=== PATIENT | male | born 1970 | race Caucasian/White ===

== ENCOUNTER → 2017-05-15 | Outpatient (CLI) | payer OTHER ==
--- NOTE | 2017-05-15 11:59 | XR ---
EXAMINATION TYPE: XR lumbosacral spine min 4V DATE OF EXAM: 05/15/2017 CLINICAL HISTORY: Low back pain with no fall or known injury TECHNIQUE: Frontal, lateral, and oblique images of the lumbar spine are obtained. COMPARISON: None FINDINGS: There are 5 lumbar type vertebral bodies identified. The lumbar spine shows satisfactory alignment without evidence of acute fracture or dislocation. Degenerative disc disease is seen at mul tiple levels within the lumbar spine demonstrated as endplate sclerosis and intervertebral disc space narrowing at L4-L5 and L5-S1. No pars interarticularis defects. There is at least mild left-sided ne ural foraminal narrowing at L4-5 and at least mild right-sided neural foraminal narrowing at L3-L4 an d L4-L5. Vertebral body heights and disk space heights are within normal limits. The overlying soft tissue appears unremarkable. IMPRESSION: 1. No acute fracture or dislocation is seen in the lumbar spine. 2. Mild multilevel degenerative disc disease.
== END | disposition home or self-care (01) ==
LOC: RADXRYALE 11:08
PROVIDERS: ATTEND Family Medicine
DX: M51.37 Other intervertebral disc degeneration, lumbosacral region (principal)
CPT/HCPCS: 72110

== ENCOUNTER → 2017-05-29 | Outpatient (CLI) | payer OTHER ==
--- NOTE | 2017-05-29 07:43 | MR ---
EXAMINATION TYPE: MR lumbar spine wo/w con DATE OF EXAM: 05/29/2017 COMPARISON: Radiograph 05/15/2017 HISTORY: 46-year-old male with low back pain and degenerative disc Technique: Multiplanar, multisequence images of the lumbar spine were obtained before and after admin istration of 10 mL intravenous Gadavist gadolinium contrast. FINDINGS: Vertebral body heights are preserved and maintained. Mild heterogeneity of marrow signal without suspicious. A couple fatty matrix hemangiomas are present such as within the L1 and L2 vertebral bodies. No suspicious bone marrow replacement. Conus medullaris is normal. There is a component of very mild congenital spinal canal narrowing of the mid lumbar spine with AP c anal dimension of 1.3 cm. Variable [id number] disc desiccation throughout with bulging discs. Mild disc interspace narrow ing at both L4-5 and L5-S1 with posterior annular fissure at L4-L5 Additional facet arthropathy in the lower lumbar spine and a dextroconvex curvature centered along th e upper lumbar spine. At T12-L1, no spinal canal or neuroforaminal stenosis. At L1-L2, there is a minimal left paracentral disc protrusion without canal or foraminal stenosis. At L2-L3, no significant canal or foraminal stenosis. At L3-L4, component of mild congenital spinal canal narrowing. There is additional facet degenerative change. Mild bulging disc. This causes minimal inferior neural foraminal narrowing on the right. No significant spinal canal stenosis. At L4-L5, there is diffuse disc bulge with a superimposed right paracentral and intraforaminal disc p rotrusion. A midline posterior annular fissure is present. Disc material likely contacts the traversi ng right L5 nerve root as well as the exiting right L4 nerve root with mild to moderate narrowing no significant spinal canal stenosis. At L5-S1, there is diffuse disc bulge with superimposed right intraforaminal disc protrusion and face t arthropathy. Disc material closely approaches and may contact the traversing right S1 nerve root. T here is also moderate right neuroforaminal with abutment of the exiting right L5 nerve root. No abnormal enhancement within the spinal canal. No prevertebral or paravertebral soft tissue body seen. IMPRESSION: 1. Moderate degenerative disc disease at L4-L5 and L5-S1 with desiccated, bulging, and narrowed disc. There is a posterior annular fissure at L4-L5. 2. Superimposed right paracentral and right intraforaminal disc protrusions at both levels may contac t there respective right-sided exiting L4 and L5 nerve roots and respective traversing L5 and S1 nerv e roots. There are moderate right-sided neuroforaminal stenoses here. 3. Facet arthropathy lower lumbar spine. 4. Correlate for a possible dextroconvex scoliosis centered near the thoracolumbar junction.
== END ==
LOC: RADMRIMAIN 06:06
PROVIDERS: ATTEND Family Medicine
DX: M48.06 Spinal stenosis, lumbar region (principal); M99.73 Connective tissue and disc stenosis of intervertebral foramina of lumbar region; M51.26 Other intervertebral disc displacement, lumbar region; M51.37 Other intervertebral disc degeneration, lumbosacral region; M46.86 Other specified inflammatory spondylopathies, lumbar region
CPT/HCPCS: 72158; A9581

== ENCOUNTER → 2020-08-29 | Outpatient (CLI) | payer BC ==
--- NOTE | 2020-08-29 14:22 | XR ---
Left knee HISTORY: Pain and swelling 3 views of the left knee There is soft tissue swelling present. No evident joint effusion. Minimal spurring present at the pat ellofemoral joint. Alignment, joint spaces, bone mineralization are maintained. IMPRESSION: Correlate for prepatellar bursitis. Mild osteoarthritic changes.
== END | disposition home or self-care (01) ==
LOC: RADXRYALE 10:26
PROVIDERS: ATTEND Physician Assistant Medical
DX: M17.12 Unilateral primary osteoarthritis, left knee (principal)

== ENCOUNTER → 2022-07-11 | Outpatient (CLI) | payer BC ==
--- NOTE | 2022-07-12 22:31 | XR ---
EXAMINATION TYPE: XR shoulder complete BILAT DATE OF EXAM: 07/11/2022 CLINICAL HISTORY: Bilateral pain TECHNIQUE: Three views of the bilateral shoulders are obtained. COMPARISON: None. FINDINGS: There is no acute fracture/dislocation evident in either shoulder. Symmetric moderate narr owing at the bilateral acromioclavicular joints. Distal acromion morphology appears unremarkable bila terally. Glenohumeral joints are preserved bilaterally . The visualized ribs are intact bilaterally. IMPRESSION: As above.
== END | disposition home or self-care (01) ==
LOC: RADXRYALE 16:44
PROVIDERS: ATTEND Family Medicine
DX: M25.511 Pain in right shoulder (principal); M25.512 Pain in left shoulder

== ENCOUNTER → 2023-04-07 | Outpatient (CLI) | payer BC ==
--- NOTE | 2023-04-08 07:57 | CT ---
EXAMINATION TYPE: CT angio head DATE OF EXAM: 04/07/2023 COMPARISON: None HISTORY: HX OF BRAIN ANEURYSM AND COIL CT DLP: 1308.4 mGycm CONTRAST: CTA sycuan of [place] with 3-D reconstruction is performed and without and with IV Contrast, patient i njected with 100 mL of Isovue 370. Contrast CTA of the sycuan of [place] was performed 3-D reconstruction imaging obtained at a separate workstation. There is extensive streak artifact noted at the level of the tip of the basilar artery from prior aneurysm coiling. This does significantly limit evaluation. Vertebrobasilar system as well as intracranial portions of the internal carotid arteries and their major tributaries are patent. I do not see evidence for sizable aneurysm or vascular malformation. Please note MRI provides greater sensitivity and specificity. Visualized brain appears grossly unremarkable. IMPRESSION: Significantly Limited study given extensive streak artifact. The visualized vessels appear to be wing nt and free of sizable aneurysm.
== END | disposition home or self-care (01) ==
LOC: RADCTMAIN 14:23
PROVIDERS: ATTEND Family Medicine
DX: I72.8 Aneurysm of other specified arteries (principal); Z86.79 Personal history of other diseases of the circulatory system
CPT/HCPCS: 70496; Q9967

== ENCOUNTER → 2024-08-29 | Outpatient (CLI) | payer BC ==
--- NOTE | 2024-08-29 10:40 | US ---
EXAMINATION TYPE: US arterial UE single level DATE OF EXAM: 08/29/2024 9:59 AM CLINICAL INDICATION: Male, 53 years old with history of G56.00 CARPAL TUNNEL,M13.0 POLYARTHRITIS,I73. 9; Pain in both hands x several years. TECHNIQUE: Systolic pressures were taken of the upper extremity arteries with wrist brachial indices calculated. History of: *Patient states he has white coat syndrome Smoker: Previous Hypertension: Yes Diabetic: No Hyperlipidemia: ?unknown per pt TIA/CVA: No Previous Vascular Surgery: No [place]: No Vascular Ulcers: No Claudication: No Gangrene: No FINDINGS: Monophasic waveforms bilaterally with noncompressible vessels. Wrist Brachial Indices: Right: CNO Left: CNO IMPRESSION: 1. Essentially nondiagnostic exam due to noncompressibility. 2. Monophasic waveforms bilaterally. [facility], , 08/29/2024 10:38 AM
--- NOTE | 2024-08-29 10:41 | US ---
EXAMINATION TYPE: US arterial LE single level DATE OF EXAM: 08/29/2024 9:59 AM COMPARISONS: None. CLINICAL INDICATION: Male, 53 years old with history of G56.00,M13.0,I73.9; Pain in feet x a couple y ears TECHNIQUE: Systolic pressures were taken of the upper and lower extremity arteries with ankle-brachia l indices and toe brachial indices calculated bilaterally. History of: Pt has white coat syndrome Smoker: Previous Hypertension: Yes Diabetic: No Hyperlipidemia: ?Unknown per pt TIA/CVA: No Previous Vascular Surgery: No [place]: No Vascular Ulcers: No Claudication: No per pt Gangrene: No FINDINGS: Doppler Waveforms: Right: Biphasic Left: Biphasic Brachial Artery systolic pressure: Right: CNO Left: CNO Posterior Tibial artery systolic pressure: Right: CNO Left: CNO Dorsalis Pedis artery systolic pressure: Right: CNO Left: CNO Toe artery systolic pressure: Right: 212 Left: CNO Ankle-Brachial Indices: Right: CNO Left: CNO (Vessel hardening > 1.4; Normal 0.9 - 1.4, Moderate 0.7 - 0.9, Severe 0.5-0.7) Toe Brachial Indices: Not performed IMPRESSION: Essentially nondiagnostic exam due to noncompressible vessels. [facility], , 08/29/2024 10:39 AM
== END | disposition home or self-care (01) ==
LOC: RADUSWWP 09:23
PROVIDERS: ATTEND Family Medicine
DX: G56.00 Carpal tunnel syndrome, unspecified upper limb (principal); M13.0 Polyarthritis, unspecified; I10 Essential (primary) hypertension; I70.203 Unspecified atherosclerosis of native arteries of extremities, bilateral legs; Z87.891 Personal history of nicotine dependence
CPT/HCPCS: 93922

== ENCOUNTER 2024-12-20 13:20 | Observation (INO) | payer BC ==
[2024-12-20] MEDS: SODIUM CHLORIDE 0.9% 1,000 ML IV ONE (13:48)
--- NOTE | 2024-12-20 14:07 | ED ---
General Adult HPI <Luis Eduardo Muñiz - Last Filed: 12/20/24 19:26> - General Source: patient, RN notes reviewed, old records reviewed Mode of arrival: ambulatory Limitations: no limitations <Car Justice - Last Filed: 12/22/24 21:51> - General Chief complaint: Recheck/Abnormal Lab/Rx Stated complaint: irreg bp Time Seen by Provider: 12/20/24 13:30 - History of Present Illness Initial comments: 54-year-old male history of hypertension presenting with elevated blood pressure. Patient was seen today with plans for carpal tunnel surgery and was noted to have a significantly elevated blood pressure. Over 200 systolic. Patient was asymptomatic and admits that he has whitecoat syndrome and does not like a hospital setting. He had contacted his primary care provider who instructed him to rest and recheck the blood pressure if it remained over 200 he should come to the emergency department. His blood pressure did remain high. He remained completely asymptomatic otherwise. No headache. No chest pain. No abdominal pain. No focal numbness or weakness. (Car Justice) - Related Data Home Medications Medication Instructions Recorded Confirmed Chlorthalidone [Hygroton] 25 mg PO HS 12/20/24 12/20/24 HYDROcodone/APAP 10-325MG [[place] 1 tab PO TID 12/20/24 12/20/24 10-325] Lansoprazole [Prevacid] 30 mg PO DAILY 12/20/24 12/20/24 Rosuvastatin [Crestor] 20 mg PO DAILY 12/20/24 12/20/24 allopurinoL [Zyloprim] 300 mg PO DAILY 12/20/24 12/20/24 lisinopriL 40 mg PO DAILY 12/20/24 12/20/24 tiZANidine [Zanaflex] 4 mg PO TID 12/20/24 12/20/24 Previous Rx's Medication Instructions Recorded Metoprolol Tartrate [Lopressor] 100 mg PO TID 30 Days #90 tab 12/21/24 amLODIPine [Norvasc] 5 mg PO DAILY 30 Days #30 tab 12/21/24 Allergies Allergy/AdvReac Type Severity Reaction Status Date / Time No Known Allergies Allergy Verified 12/20/24 14:59 Review of Systems ROS Other: All systems not noted in ROS Statement are negative. <Luis Eduardo Muñiz - Last Filed: 12/20/24 19:26> ROS Other: All systems not noted in ROS Statement are negative. <Car Justice - Last Filed: 12/22/24 21:51> ROS Statement: Those systems with pertinent positive or pertinent negative responses have been documented in the HPI. Past Medical History Past Medical History: Hypertension Additional Past Medical History / Comment(s): aneurysm History of Any Multi-Drug Resistant Organisms: None Reported Past Surgical History: Back Surgery Past Psychological History: No Psychological Hx Reported Smoking Status: Former smoker Past Alcohol Use History: Occasional Past Drug Use History: None Reported <Car Justice - Last Filed: 12/22/24 21:51> General Exam Limitations: no limitations General appearance: alert, in no apparent distress Head exam: Present: atraumatic, normocephalic Eye exam: Present: normal appearance, PERRL ENT exam: Present: normal exam Neck exam: Present: normal inspection. Absent: tenderness, meningismus Respiratory exam: Present: normal lung sounds bilaterally. Absent: respiratory distress, wheezes Cardiovascular Exam: Present: regular rate, normal rhythm GI/Abdominal exam: Present: soft. Absent: distended, tenderness Extremities exam: Present: normal inspection, normal capillary refill Neurological exam: Present: alert, oriented X3, CN II-XII intact. Absent: motor sensory deficit Psychiatric exam: Present: normal affect, normal mood <Car Justice - Last Filed: 12/22/24 21:51> Course Vital Signs 12/20/24 12/20/24 12/20/24 13:22 14:30 15:05 Temperature 97.8 F Pulse Rate 88 72 84 Respiratory 20 18 18 Rate Blood Pressure 254/138 173/115 200/119 O2 Sat by Pulse 97 95 97 Oximetry 12/20/24 12/20/24 12/20/24 15:30 16:17 16:47 Temperature Pulse Rate 80 98 100 Respiratory 18 18 18 Rate Blood Pressure 200/126 178/102 186/111 O2 Sat by Pulse 98 97 95 Oximetry 12/20/24 12/20/24 12/20/24 17:37 18:00 19:42 Temperature Pulse Rate 109 H 114 H Respiratory 18 Rate Blood Pressure 195/111 173/112 195/140 O2 Sat by Pulse 97 Oximetry 12/20/24 12/20/24 12/20/24 20:14 20:37 23:33 Temperature 98.4 F 98.4 F Pulse Rate 133 H 117 H 101 H Respiratory 20 20 18 Rate Blood Pressure 164/99 149/81 123/74 O2 Sat by Pulse 98 98 98 Oximetry Medical Decision Making - Lab Data Result diagrams: 12/20/24 14:00 12/20/24 14:00 <Luis Eduardo Muñiz - Last Filed: 12/20/24 19:26> - Lab Data Result diagrams: 12/21/24 08:50 12/21/24 08:50 <Car Justice - Last Filed: 12/22/24 21:51> - Medical Decision Making Despite several attempts at reducing blood pressure with multiple medications kolton kenny remains hypertensive. Patient will be admitted. Admission orders written. Patient and family updated. Case was discussed with practitioner Tj who will admit covering for Dr. Aditi hartman. (Luis Eduardo Muñiz) Was pt. sent in by a medical professional or institution (, PA, TITLE SEARCHER, urgent care, hospital, or shelter...) When possible be specific @ -No Did you speak to anyone other than the patient for history (EMS, parent, family, police, friend...)? What history was obtained from this source @ -No Did you review nursing and triage notes (agree or disagree)? Why? @ -I reviewed and agree with nursing and triage notes Were old charts reviewed (outside hosp., previous admission, EMS record, old EKG, old radiological studies, urgent care reports/EKG's, shelter records)? Report findings @ -No old charts were reviewed Differential Diagnosis hypertension, asymptomatic, hypertensive urgency, hypertensive emergency. EKG interpreted by me (3pts min.). @Sinus rhythm rate of 78, VT interval 175, QRS duration 89, QTc [address] segment elevation. X-rays interpreted by me (1pt min.). @ -None done CT interpreted by me (1pt min.). @ -None done U/S interpreted by me (1pt. min.). @ -None done What testing was considered but not performed or refused? (CT, X-rays, U/S, labs)? Why? @ -None What meds were considered but not given or refused? Why? @ -None Did you discuss the management of the patient with other professionals (professionals i.e. , PA, TITLE SEARCHER, lab, RT, psych nurse, nursing home social worker, broadcast operations manager, teacher, aoc director combat operations officer, supervisor case loading)? Give summary @ -No Was smoking cessation discussed for >3mins.? @ -No Was critical care preformed (if so, how long)? @ -No Were there social determinants of health that impacted care today? How? (Homelessness, low income, unemployed, alcoholism, drug addiction, transportation, low edu. Level, literacy, decrease access to med. care, snf, rehab)? @ -No Was there de-escalation of care discussed even if they declined (Discuss DNR or withdrawal of care, Hospice)? DNR status @ -No What co-morbidities impacted this encounter? (DM, HTN, Smoking, COPD, CAD, Cancer, CVA, ARF, Chemo, Hep., AIDS, mental health diagnosis, sleep apnea, morbid obesity)? @ -History of hypertension Was patient admitted / discharged? Hospital course, mention meds given and route, prescriptions, significant lab abnormalities, going to OR and other pertinent info. @ -[54-year-old male with history of hypertension, presenting with elevated blood pressure likely secondary to whitecoat syndrome. Patient completely asymptomatic. EKG is sinus. He has no chest pain no abdominal pain no headache. No focal numbness or weakness. Laboratory testing is unremarkable. Given IV fluids and hydralazine in the emergency department with significant improvement in blood pressure. Patient care signed out at shift change awaiting reduction in blood pressure. Undiagnosed new problem with uncertain prognosis? @ -No Drug Therapy requiring intensive monitoring for toxicity (Heparin, Nitro, Insulin, Cardizem)? @ -No Were any procedures done? @ -No Diagnosis/symptom? @Uncontrolled hypertension Acute, or Chronic, or Acute on Chronic? @Acute on chronic Uncomplicated (without systemic symptoms) or Complicated (systemic symptoms)? @ -Default Side effects of treatment? @ -No Exacerbation, Progression, or Severe Exacerbation? @ -No Poses a threat to life or bodily function? How? (Chest pain, [place], [place], pneumonia, PE, COPD, DKA, ARF, appy, cholecystitis, CVA, Diverticulitis, Homicidal, Suicidal, threat to staff... and all critical care pts) @ -Low risk at this time (Car Justice) - Lab Data Lab Results 12/20/24 12/20/24 12/20/24 Range/Units 14:00 14:00 14:00 WBC 8.9 (3.8-10.6) k/uL RBC 6.09 H (4.30-5.90) m/uL Hgb 18.0 H (13.0-17.5) gm/dL Hct 52.8 (39.0-53.0) % MCV 86.6 (80.0-100.0) fL MCH 29.6 (25.0-35.0) pg MCHC 34.1 (31.0-37.0) g/dL RDW 13.2 (11.5-15.5) % Plt Count 214 (150-450) k/uL MPV 7.1 Neutrophils % 68 % Lymphocytes % 22 % Monocytes % 6 % Eosinophils % 1 % Basophils % 1 % Neutrophils # 6.0 (1.3-7.7) k/uL Lymphocytes # 2.0 (1.0-4.8) k/uL Monocytes # 0.5 (0-1.0) k/uL Eosinophils # 0.1 (0-0.7) k/uL Basophils # 0.1 (0-0.2) k/uL Sodium 136 L (137-145) mmol/L Potassium 4.0 (3.5-5.1) mmol/L Chloride 97 L (98-107) mmol/L Carbon Dioxide 24 (22-30) mmol/L Anion Gap 15 mmol/L BUN 19 (9-20) mg/dL Creatinine 0.83 (0.66-1.25) mg/dL Est GFR (CKD-EPI)AfAm >90 (>60 ml/min/1.73 sqM) Est GFR (CKD-EPI)NonAf >90 (>60 ml/min/1.73 sqM) Glucose 91 (74-99) mg/dL Calcium 10.5 H (8.4-10.2) mg/dL Total Bilirubin 1.1 (0.2-1.3) mg/dL AST 61 H (17-59) U/L ALT 85 H (4-49) U/L Alkaline Phosphatase 99 (38-126) U/L Troponin I 0.012 (0.000-0.034) ng/mL Total Protein 8.2 (6.3-8.2) g/dL Albumin 5.0 (3.5-5.0) g/dL Disposition Is patient prescribed a controlled substance at d/c from ED?: No <Luis Eduardo Muñiz - Last Filed: 12/20/24 19:26> Is patient prescribed a controlled substance at d/c from ED?: No Time of Disposition: 15:10 <Car Justice - Last Filed: 12/22/24 21:51> Clinical Impression: Hypertension Disposition: ADMITTED IP TO THIS HOSP Condition: Stable
[2024-12-20 14:13] LABS: Basophils # (A) 0.1 k/uL (0-0.2); Basophils % (A) 1 %; Eosinophils # (A) 0.1 k/uL (0-0.7); Eosinophils % (A) 1 %; HCT 52.8 % (39.0-53.0); Lymphocytes % (A) 22 %; MCH 29.6 pg (25.0-35.0); MCHC 34.1 g/dL (31.0-37.0); MCV 86.6 fL (80.0-100.0); Mean Platelet Volume 7.1; Monocytes # (A) 0.5 k/uL (0-1.0); Monocytes % (A) 6 %; Neutrophils % (A) 68 %; Platelet Count 214 k/uL (150-450); RBC 6.09 m/uL (4.30-5.90); RDW 13.2 % (11.5-15.5); WBC 8.9 k/uL (3.8-10.6)
[2024-12-20 14:30] LABS: ALT 85 U/L (4-49); AST 61 U/L (17-59); African American GFR (CKD) >90 (>60 ml/min/1.73 sqM); Alkaline Phosphatase 99 U/L (38-126); Anion Gap 15 mmol/L; Blood Urea Nitrogen 19 mg/dL (9-20); Calcium 10.5 mg/dL (8.4-10.2); Carbon Dioxide 24 mmol/L (22-30); Chloride 97 mmol/L (98-107); Glucose 91 mg/dL (74-99); Non-African American GFR(CKD) >90 (>60 ml/min/1.73 sqM); Sodium 136 mmol/L (137-145); Total Bilirubin 1.1 mg/dL (0.2-1.3); Total Protein 8.2 g/dL (6.3-8.2)
[2024-12-20] MEDS: hydrALAZINE HCL 20 MG/ML 1 ML VIAL IVP STA ×2 (14:47→15:35)
[2024-12-20] MEDS: ENALAPRILAT 1.25 MG/ML 1 ML VIAL IVP STA ×2 (17:02→19:30)
[2024-12-20] MEDS ORDERED: NALOXONE 0.4 MG/ML 1 ML VIAL IV PRN (19:27)
[2024-12-20] MEDS: hydrALAZINE HCL 20 MG/ML 1 ML VIAL IVP PRN (19:38)
[2024-12-20] MEDS: HYDROmorphone 1 MG/ML 1 ML SYRINGE IVP PRN (20:19)
[2024-12-20] MEDS ORDERED: NON FORMULARY DRUG (Metoprolol Tartrate [Lopressor] 100 MG Tablet) PO SCH (21:00)
[2024-12-20] MEDS: HYDROcodone/APAP 10-325MG 1 EACH TAB PO SCH (21:32)
[2024-12-20] MEDS: METOPROLOL TARTRATE 50 MG TAB PO SCH (21:32)
[2024-12-20] MEDS: tiZANidine 4 MG TAB PO SCH (21:32)
[2024-12-20] MEDS ORDERED: cloNIDine HCL 0.1 MG TAB PO PRN (22:41)
[2024-12-20] MEDS: CHLORTHALIDONE 25 MG TAB PO SCH (22:46)
[2024-12-20] MEDS: cloNIDine HCL 0.2 MG TAB PO STA (22:49)
--- NOTE | 2024-12-20 23:18 | P.HPIM ---
History of Present Illness H&P Date: 12/20/24 Chief Complaint: htn urgency Patient is a 54-year-old male with hypertension presenting with elevated blood pressure. [facility] and was noted to have elevated blood pressure over 200 systolic. Patient was negative syntactic. He felt that he has had whitecoat syndrome due to him being in a hospital setting. He shortly went home and called his PCP. PCP told him to recheck blood pressure at home and it was still in the 200s systolic. He was instructed to go to the emergency department. During interview patient remains him symptomatic. However he did note that after he received his blood pressure medications in the ED, he noted some chest pain. He describes it as a pain that radiates to his left arm. EKG and troponins were ordered and have been unremarkable so far. Denies any nausea, vomiting, diaphoresis, or shortness of breath. Denies any headache, abdominal pain, numbness or tingling. EKG independently interpreted displays sinus rhythm, vent rate 78 bpm, QTc 404 ms T 97.8 F, [place] 88, RR 20, BP 254/138, O2 sat 97% on room air Review of systems: Pertinent positives and negatives as discussed in HPI, a complete review of systems was performed and all other systems are negative. Physical examination: Vital signs reviewed General: non toxic, no distress, appears at stated age, normal weight Derm: no unusual rashes/lesions, warm Head: atraumatic, normocephalic, symmetric Eyes: anicteric sclera, pupils equal round reactive to light ENT: Nose and ears atraumatic Mouth: no lip lesion, mucus membranes moist Cardiovascular: S1S2 reg, no murmur, no edema Lungs: CTA bilateral, no rhonchi, no rales, no accessory muscle use Abdominal: soft, non-tender to palpation, no guarding Ext: muscle strength 5 out of 5 in all 4 extremities grossly, no gross muscle atrophy Neuro: CN II-XI grossly intact, no gross focal neuro deficits Psych: Alert, oriented to person, place, and time Assessment/Plan: Patient is a 54-year-old male with hypertension presenting with elevated blood pressure. ED documentation reviewed.Discussed with the patient. The patient is admitted with an anticipated less than 2 midnight stay for evaluation of hypertensive urgency. #. Hypertensive urgency EKG independently interpreted displays sinus rhythm, vent rate 78 bpm, QTc 404 ms S/p 20 mg hydralazine IVP and Vasotec 2.50 mg of IVP Clonidine 0.1 mg prn for BP > 180/120 - can take hourly for up to 0.7 mg a day Continue with home antihypertensives tomorrow: Chlorthalidone 25 mg PO at bedtime, lisinopril 40 mg PO daily, Lopressor 100 mg PO twice daily Troponin < 0.012 x 2, continue trending TSH ordered #. Erythrocytosis Hgb 18.0 Likely in setting of dehydration Follow-up CBC #. Transaminitis Patient asymptomatic monitor CMP #. Hyperlipidemia Rosuvastatin 20 mg p.o. daily #. Chronic back pain Zanaflex 4 mg PO TID [place] 10 PO TID DVT prophylaxis: Lovenox 40 SQ daily CODE STATUS: Full code Anticipated discharge place: Pending clinical course Tiffany Lee MD PGY-1 IM Dictation was produced using [employer] dictation software. please excuse any grammatical, word or spelling errors. I have seen and evaluated the patient today. I Discussed the case with the resident and agree with the resident's findings I edited the assessment and plan as necessary as documented in the resident's note. Past Medical History Past Medical History: Hypertension Additional Past Medical History / Comment(s): aneurysm History of Any Multi-Drug Resistant Organisms: None Reported Past Surgical History: Back Surgery Past Psychological History: No Psychological Hx Reported Smoking Status: Former smoker Past Alcohol Use History: Occasional Past Drug Use History: None Reported Medications and Allergies Home Medications Medication Instructions Recorded Confirmed Type Chlorthalidone [Hygroton] 25 mg PO HS 12/20/24 12/20/24 History HYDROcodone/APAP 10-325MG [[place] 1 tab PO TID 12/20/24 12/20/24 History 10-325] Lansoprazole [Prevacid] 30 mg PO DAILY 12/20/24 12/20/24 History Rosuvastatin [Crestor] 20 mg PO DAILY 12/20/24 12/20/24 History allopurinoL [Zyloprim] 300 mg PO DAILY 12/20/24 12/20/24 History lisinopriL 40 mg PO DAILY 12/20/24 12/20/24 History tiZANidine [Zanaflex] 4 mg PO TID 12/20/24 12/20/24 History Metoprolol Tartrate [Lopressor] 100 mg PO TID 30 Days #90 tab 12/21/24 Rx amLODIPine [Norvasc] 5 mg PO DAILY 30 Days #30 tab 12/21/24 Rx Allergies Allergy/AdvReac Type Severity Reaction Status Date / Time No Known Allergies Allergy Verified 12/20/24 14:59 Physical Exam Vitals: Vital Signs Temp Pulse Resp BP Pulse Ox 12/20/24 20:37 117 H 20 149/81 98 12/20/24 20:14 98.4 F 133 H 20 164/99 98 12/20/24 19:42 114 H 195/140 12/20/24 18:00 109 H 18 173/112 97 12/20/24 17:37 195/111 12/20/24 16:47 100 18 186/111 95 12/20/24 16:17 98 18 178/102 97 12/20/24 15:30 80 18 200/126 98 12/20/24 15:05 84 18 200/119 97 12/20/24 14:30 72 18 173/115 95 12/20/24 13:22 97.8 F 88 20 254/138 97 Intake and Output 12/20/24 12/20/24 12/20/24 06:59 14:59 22:59 Other: Weight 92.986 kg Results CBC & Chem 7: 12/21/24 08:50 12/21/24 08:50 Labs: Abnormal Lab Results - Last 24 Hours (Table) 12/20/24 12/20/24 Range/Units 14:00 14:00 RBC 6.09 H (4.30-5.90) m/uL Hgb 18.0 H (13.0-17.5) gm/dL Sodium 136 L (137-145) mmol/L Chloride 97 L (98-107) mmol/L Calcium 10.5 H (8.4-10.2) mg/dL AST 61 H (17-59) U/L ALT 85 H (4-49) U/L
[2024-12-21] MEDS: PANTOPRAZOLE 40 MG TABLET PO STA (00:52)
[2024-12-21 07:55] VITALS: RESP 17
[2024-12-21] MEDS: ENOXAPARIN 40 MG/0.4 ML SYRINGE SQ SCH (08:08)
[2024-12-21] MEDS: lisinopriL 20 MG TAB PO SCH (08:08)
[2024-12-21] MEDS: ATORVASTATIN 40 MG TAB PO SCH (08:08)
[2024-12-21] MEDS: PANTOPRAZOLE 40 MG TABLET PO SCH (08:10)
[2024-12-21] MEDS: LORazepam 1 MG TAB PO STA (08:53)
[2024-12-21] MEDS: amLODIPine 5 MG TAB PO SCH (08:53)
[2024-12-21 09:20] LABS: Basophils % (A) 0 %; Eosinophils % (A) 1 %; HCT 51.7 % (39.0-53.0); HGB 17.2 gm/dL (13.0-17.5); Lymphocytes # (A) 1.1 k/uL (1.0-4.8); Lymphocytes % (A) 12 %; MCH 29.1 pg (25.0-35.0); MCHC 33.2 g/dL (31.0-37.0); MCV 87.6 fL (80.0-100.0); Mean Platelet Volume 7.1; Monocytes # (A) 0.6 k/uL (0-1.0); Monocytes % (A) 6 %; Neutrophils # (A) 7.5 k/uL (1.3-7.7); Neutrophils % (A) 79 %; Platelet Count 249 k/uL (150-450); RDW 13.4 % (11.5-15.5); WBC 9.4 k/uL (3.8-10.6)
[2024-12-21 09:27] LABS: ALT 55 U/L (4-49); AST 33 U/L (17-59); African American GFR (CKD) 85 (>60 ml/min/1.73 sqM); Albumin 4.6 g/dL (3.5-5.0); Alkaline Phosphatase 90 U/L (38-126); Anion Gap 13 mmol/L; Blood Urea Nitrogen 20 mg/dL (9-20); Calcium 10.4 mg/dL (8.4-10.2); Carbon Dioxide 23 mmol/L (22-30); Chloride 98 mmol/L (98-107); Glucose 134 mg/dL (74-99); Magnesium 1.9 mg/dL (1.6-2.3); Non-African American GFR(CKD) 74 (>60 ml/min/1.73 sqM); Potassium 3.9 mmol/L (3.5-5.1); Sodium 134 mmol/L (137-145); Total Bilirubin 1.3 mg/dL (0.2-1.3); Total Protein 7.4 g/dL (6.3-8.2)
[2024-12-21] MEDS: allopurinoL 300 MG TAB PO SCH (10:16)
[2024-12-21] MEDS ORDERED: MORPHINE SULFATE 4 MG/ML SYRINGE IV PRN (10:40)
[2024-12-21 15:48] VITALS: BP 160/95; PULSE 90; TEMP 98.7
--- NOTE | 2024-12-21 16:19 | P.DS ---
Providers Date of admission: 12/20/24 19:27 Expected date of discharge: 12/21/24 Attending physician: Malcom Grady Primary care physician: Reji Mendoza [facility] Course: Discharge Diagnosis: Hypertensive urgency. Patient asymptomatic however does have history of reported brain aneurysm. Patient declined undergoing CT scan stating he does not have a headache or any complaints at this time and was recently seen and underwent scan by his neurologist a few months ago. Patient's home medication regimen of metoprolol was increased to 100 mg 3 times daily (previously taking twice daily) and he was started on amlodipine 5 mg daily in addition to his current blood pressure medication with chlorthalidone 25 mg nightly and lisinopril 40 mg daily. Blood pressures have improved at 158/91, 160/95, and patient remains asymptomatic denying any complaints. Patient reports his only issue is feeling anxious about being in the hospital and does not want to be here. Patient is medically optimized for discharge at this time and strongly encouraged to monitor his blood pressures closely at home a minimum of twice daily at home and document these results and a daily log to bring with him to his follow-up appointment with PCP. 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 Patient to follow-up with his neurologist for long-term monitoring/management. Patient states he was diagnosed over 20 years ago and was told by his neurologist everything is stable and he denies any complaints including headache. Hyperlipidemia. Continue daily medication regimen with rosuvastatin 20 mg nightly. Chronic lower back pain. Patient to continue home medication regimen with Zanaflex 4 mg 3 times daily and [place] 10/325 mg 3 times daily. Hospital Course: Patient is a pleasant 54-year-old male with a past medical history of hypertension, anxiety, chronic lower back pain, hyperlipidemia and a coiled brain aneurysm that he follows closely with neurologist and was last evaluated and had brain scan a few months ago. Patient presented to the hospital on 12/20/2024 secondary to hypertensive urgency [facility] and scheduled for carpal tunnel release surgery and was found to have asymptomatic elevated blood pressures greater than 200 systolic. Patient denies having any symptoms of hypertension denying headache, lightheadedness, dizziness, changes in vision, chest pain, palpitations, shortness of breath, or experiencing any numbness/tingling/weakness in his extremities. Upon arrival to our facility, patient underwent evaluation in the emergency department. Vital signs upon arrival show blood pressure 254/138, heart rate 88, respiratory rate 20, temp 97.8 F, and SpO2 of 97% on room air. EKG was completed showing normal sinus mechanism at 78 bpm with no noted T wave or ST abnormality showing no signs of acute ischemia upon personal review and interpretation. Labs completed and reviewed. CBC showing elevated hemoglobin of 18.0. BMP showing sodium 136, potassium 4.0, chloride of 97, bicarb of 24, and elevated anion gap of 15 renal function unremarkable. Calcium was elevated at 10.5 and liver profile showing elevated AST of 61 and ALT of 85. Troponin 0.012. Despite multiple efforts made in the emergency department to improve blood pressure, patient remained hypertensive and he was admitted under our services at this time. Troponins trended at 0.012, less than 0.012, and 0.016. Patient's home metoprolol was increased to 100 mg 3 times daily and patient was started on amlodipine 5 mg daily. Blood pressures have improved at 158/91, 160/95, and patient remains asymptomatic denying any complaints. Patient reports his only issue is feeling anxious about being in the hospital and does not want to be here. Patient is medically optimized for discharge at this time and strongly encouraged to monitor his blood pressures closely at home a minimum of twice daily at home and document these results and a daily log to bring with him to his follow-up appointment with PCP. Physical exam: Vital signs reviewed and stable. General: Nontoxic, no distress and appears stated age. Derm: Skin warm and dry, normal coloration for ethnicity. Head: Atraumatic, normocephalic and symmetric. Eyes: EOM's intact, no lid lag, and anicteric sclera Mouth: no lip lesions, mucus membranes moist Cardiovascular: regular rate and rhythm with normal S1S2, no murmur, positive posterior tibial pulses bilaterally, and cap refill < 2 seconds. Lungs: Respirations even, regular, and unlabored on room air. Lungs CTA bilaterally, no rhonchi, no rales, no wheezing, and no accessory muscle usage. Abdominal: soft, nontender to palpation, no guarding, no appreciable organomegaly Ext: ROM intact. No gross muscle atrophy, no edema, no contractures Neuro: Speech clear, face symmetrical and CN II-XII grossly intact with no noted focal neuro deficits Psych: Alert and oriented to person, place, time, and situation. Appropriate and pleasant affect. A total of 33 minutes of time were spent preparing this complex discharge summary. Pt was discharged on 10/23/2024 at 4:08 PM Patient was seen independently by Nurse Practitioner. This document was prepared using [employer] dictation software. Please allow for errors in intake assessor while rare they do occur. Tj Mascorro NP rendered care for this patient independently, reviewed the findings and plan as documented in the note above. I did not physically speak with or examine the patient on this date. Patient Condition at Discharge: Stable Plan - Discharge Summary Discharge Rx Participant: Yes New Discharge Prescriptions: New amLODIPine [Norvasc] 5 mg PO DAILY 30 Days #30 tab Metoprolol Tartrate [Lopressor] 100 mg PO TID 30 Days #90 tab Continue HYDROcodone/APAP 10-325MG [[place] 10-325] 1 tab PO TID Chlorthalidone [Hygroton] 25 mg PO HS tiZANidine [Zanaflex] 4 mg PO TID lisinopriL 40 mg PO DAILY allopurinoL [Zyloprim] 300 mg PO DAILY Rosuvastatin [Crestor] 20 mg PO DAILY Lansoprazole [Prevacid] 30 mg PO DAILY Discontinued Metoprolol Tartrate [Lopressor] 100 mg PO BID Discharge Medication List Chlorthalidone [Hygroton] 25 mg PO HS 12/20/24 [History] HYDROcodone/APAP 10-325MG [[place] 10-325] 1 tab PO TID 12/20/24 [History] Lansoprazole [Prevacid] 30 mg PO DAILY 12/20/24 [History] Rosuvastatin [Crestor] 20 mg PO DAILY 12/20/24 [History] allopurinoL [Zyloprim] 300 mg PO DAILY 12/20/24 [History] lisinopriL 40 mg PO DAILY 12/20/24 [History] tiZANidine [Zanaflex] 4 mg PO TID 12/20/24 [History] Metoprolol Tartrate [Lopressor] 100 mg PO TID 30 Days #90 tab 12/21/24 [Rx] amLODIPine [Norvasc] 5 mg PO DAILY 30 Days #30 tab 12/21/24 [Rx] Follow up Appointment(s)/Referral(s): Reji Mendoza DO [Primary Care Provider] - 1-2 days Patient Instructions/Handouts: Hypertensive Crisis (DC), Hypertension (DC) Activity/Diet/Wound Care/Special Instructions: Activity: As tolerated. Take breaks as needed. Diet: Heart healthy and carb consistent diet. Avoid salts, or foods with hidden salts such as canned or boxed foods and frozen dinners. Extra salt makes your heart work harder and traps the fluid in your body for longer. Special Instructions: Take all of your medications as directed and remember to keep all of your doctor's appointments and follow-up as needed. It is important to monitor your blood pressure closely at home as discussed at bedside at least twice daily document these findings and a daily log to bring with you to your follow-up appointment with your PCP as additional adjustments may be needed to this blood pressure medication regimen. Avoid salt as this can increase your blood pressure and if you develop symptoms of headache, lightheadedness, dizziness, chest pain, or shortness of breath return to the hospital immediately. Thank you for allowing us to participate in your care, it was truly a pleasure having you for our patient!!! Discharge Disposition: HOME SELF-CARE
== END 2024-12-21 17:05 | disposition home or self-care (01) ==
LOC: EC 13:20 → 6NMEDSUR 19:27 → 1SOBS 20:59
PROVIDERS: ADMIT Student in an Organized Health Care Education/Training Program; ATTEND Student in an Organized Health Care Education/Training Program
DX: I16.0 Hypertensive urgency (principal); I10 Essential (primary) hypertension; D75.1 Secondary polycythemia; R74.01 Elevation of levels of liver transaminase levels; E78.5 Hyperlipidemia, unspecified; G89.29 Other chronic pain; M54.9 Dorsalgia, unspecified; Z87.891 Personal history of nicotine dependence; Z79.899 Other long term (current) drug therapy
CPT/HCPCS: 96376 ×2; 96361; 96374; 96375; 99284; 36415; 93005; 80053 ×2; 84443; 83735; 84484 ×2; 85025 ×2; G0378 ×3; J0360 ×2; J1171